=== PATIENT | female | born 1995 | race Caucasian/White ===

== ENCOUNTER → 2017-03-10 | Outpatient (CLI) | payer BC | END | disposition home or self-care (01) | LOC: C.PAPS 16:58 | PROVIDERS: ATTEND Physician Assistant | DX: Z01.411 Encounter for gynecological examination (general) (routine) with abnormal findings (principal); R87.610 Atypical squamous cells of undetermined significance on cytologic smear of cervix (ASC-US) ==

== ENCOUNTER → 2017-03-17 | Outpatient (CLI) | payer BC ==
[2017-03-25 19:52] LABS: CHLAMYDIA TRACH RNA*** NOT DETECTED (NOT DETECTED); GC (NEIS GONORRHOEAE)RNA** NOT DETECTED (NOT DETECTED)
== END | disposition home or self-care (01) ==
LOC: C.LABSPEC 10:38
PROVIDERS: ATTEND Physician Assistant
DX: N94.10 Unspecified dyspareunia (principal)

== ENCOUNTER → 2018-03-18 | Outpatient (CLI) | payer BC | END | disposition home or self-care (01) | LOC: C.LABSPEC 11:14 | PROVIDERS: ATTEND Physician Assistant | DX: Z01.419 Encounter for gynecological examination (general) (routine) without abnormal findings (principal) ==

== ENCOUNTER → 2018-03-18 | Outpatient (CLI) | payer BC | END | disposition home or self-care (01) | LOC: C.PAPS 11:53 | PROVIDERS: ATTEND Physician Assistant | DX: Z01.419 Encounter for gynecological examination (general) (routine) without abnormal findings (principal) ==

== ENCOUNTER 2021-10-29 07:36 | Inpatient (IN) ==
[2021-10-29] MEDS ORDERED: OXYTOCIN 30 UNITS/500 ML BAG IV PRN ×4 (08:01→19:14)
[2021-10-29 08:20] LABS: Hematocrit (blood only) 33.1 % (37-47); Hemoglobin 11.2 g/dL (12.0-16.0); Mean Corpuscular Hemoglobin 31.2 pg (25-34); Mean Corpuscular Hgb Conc 33.8 g/dL (32-36); Mean Corpuscular Volume 92.2 fL (80-100); Platelet Count 252 K/uL (130-400); RDW Coefficient of Variation 14.2 % (11.5-14.5); RDW Standard Deviation 47.6 fL (36.4-46.3); Red Blood Count 3.59 M/uL (4.2-5.4); White Blood Count 15.21 K/uL (4.8-10.8)
--- NOTE | 2021-10-29 08:23 | History & Physical Report ---
Date of Service October 29, 2021 Assessment & Plan (1) Gestational diabetes mellitus (GDM) affecting , antepartum: (2) Encounter for induction of labor: Plan: plan pitocin induction. epidural then arom. fetus category one. check bs q 1hr and goal of 70-120. Anticipate . Admission and Anticipated Discharge Date Admission Date: October 29, 2021 History of Present Illness Chief Complaint: induction of labor Primary Care Provider: Joya Clinton DO Patient is a 26yowf with iup at 41 4/7 weeks who presents for postdates induction. Had coombs placed last night and still in. Notes some contractions. no vb/lof. +fm. labs: Blood Type A Positive 03/11/21 Antibody Screen NEGATIVE 03/11/21 Hemoglobin 10.5 g/dL (12.0-16.0) L 08/01/21 Hematocrit 32.2 % (37-47) L 08/01/21 Mean Corpuscular Volume 89.0 fL (80-100) 03/11/21 Platelet Count 253 K/uL (130-400) 03/11/21 Varicella-Zoster IgG Antibody 3842.00 INDEX 02/25/19 Rubella IgG Antibody Immune (Immune) 03/11/21 Rapid Plasma Reagin Nonreactive (Nonreactive) 03/11/21 Hepatitis B Surface Antigen Neg (Neg) 03/11/21 HIV (1&2) Ab and P24 Ag, 4th Gener Neg (Neg) 03/11/21 Glucose 1 Hour 50 gm Load 138 mg/dl (70-130) H 08/01/21 OB Optional Labs: Chlamydia trachomatis RNA NOT DETECTED (NOT DETECTED) 03/11/21 Neisseria gonorrhoeae RNA NOT DETECTED (NOT DETECTED) 03/11/21 Thyroid Stimulating Hormone (TSH) 1.580 uIu/ml (0.300-4.500) 10/03/21 Labs Reviewed: low risk cfdna, neg cf/sma declines AFP failed 28 week gtt-akh gbs neg Allergies Allergy/AdvReac Type Severity Reaction Status Date / Time benzoyl peroxide AdvReac Unknown Rash Verified 10/29/21 07:46 Home Medications Medication Instructions Recorded Confirmed Type [id number] 3-fat com #1 27 1 cap PO DAILY cap 09/24/20 10/29/21 History mg-1 mg-300 mg capsule levothyroxine 50 mcg tablet 50 mcg PO DAILY #30 tab 10/16/21 10/29/21 Rx Patient History Medical History Depression Hidradenitis suppurativa Obesity Prior miscarriage with , antepartum Subclinical hypothyroidism Surgical History H/O wisdom tooth extraction Family History Mother Diabetes Hypertension High cholesterol Grandfather (Maternal) Coronary heart disease Myocardial infarction Grandmother (Paternal) Hypothyroidism Father No problems noted. Denies family history of Colon cancer Pancreas cancer Ovarian cancer Prostate cancer Breast cancer Uterine cancer Social History Smoking Status: Current every day smoker Age Started Using Tobacco: 15; packs per day: 0.5; Cigarettes Per Day: 10; Second Hand Exposure: Yes; Do You Dip or Chew Tobacco: No; Tobacco Cessation Education Requested by Patient: No Hx Alcohol Use: No Hx Substance Use: No Preferred Language: Burundian Communication Ability: Effective Visual Impairment: No Limitations Hearing Ability: Normal Direct Service Professional Required: No Beliefs That Will Affect Care: None marital status: marital status details: Jt Lewis (27) [phone] Current Living Situation: Spouse Current Living Situation Comment: lives with spouse have 1 dog, 2 cats. current occupational status: employed current occupation: [employer] Patient Access Other Information That Helps Us Care for You: No Feels Safe at Home: Yes Safety Concerns: Feels Safe At This Time Childhood Exposure to Second-Hand Smoke: Yes caffeine: Yes (soda) during the past year weight has: remained stable Dental Care, Regularly: Yes Physical Activity Frequency: Does not Exercise Seatbelt Use: always Sunscreen Use: Yes Assistive Devices: None OB History g1--present SHANK CUTTER History noncontributory Physical Exam Constitutional: WD/WN, vitals as above Gastrointestinal (Abdomen): soft, gravid, nt efw--8-9 Psychiatric: A+Ox3, euthymic affect Genitourinary: gentle tug on the coombs and removed cx--4.5/75/-2 toco--q5 efm--130s with mod variability, accels to 150s, no decels Results & Data ([facility]) Vital Signs (Past 12 Hours) Vital Signs Temp Pulse Resp BP 10/29/21 07:45 36.6 C 111 H 20 121/80 Coding Level of Care Code None Diagnoses Gestational diabetes mellitus (GDM) affecting , antepartum O24.419 Encounter for induction of labor Z34.90
[2021-10-29] MEDS: LACTATED RINGER'S 1,000 ML IV PRN ×2 (09:45→13:58)
[2021-10-29] MEDS ORDERED: ePHEDrine sulfate 50 MG/ML AMP ONE (13:41)
[2021-10-29] MEDS ORDERED: SODIUM CHLORIDE 0.9% INJ 10 ML VIAL ONE (13:41)
[2021-10-29] MEDS ORDERED: BUPIVACAINE 0.25% 30 ML VIAL ONE (13:41)
[2021-10-29] MEDS ORDERED: fentaNYL citrate 100 MCG/2 ML VIAL ONE (13:42)
[2021-10-29] MEDS ORDERED: fentaNYL 2MCG/ML ROPIVACAINE 1.25MG/ML 100 ML BAG EPI ONE (13:42)
[2021-10-29] MEDS ORDERED: NALOXONE HCL 0.4 MG/1 ML VIAL/CARP IV PRN (13:52)
[2021-10-29] MEDS ORDERED: NALBUPHINE HCL INJ 10 MG/ML AMP IV PRN (13:52)
[2021-10-29] MEDS ORDERED: ePHEDrine sulfate 50 MG/ML AMP IV PRN (13:52)
[2021-10-29] MEDS ORDERED: NALOXONE HCL 1 MG in SODIUM CHLORIDE 0.9% 1000ML 1,000 ML IV PRN (13:52)
[2021-10-29] MEDS ORDERED: diphenhydrAMINE 50 MG/ML VIAL IV PRN (13:52)
[2021-10-29] MEDS ORDERED: fentaNYL 2MCG/ML ROPIVACAINE 1.25MG/ML 100 ML BAG EPI PRN (13:52)
--- NOTE | 2021-10-29 13:53 | Anesthesiology Consultation ---
Date of Service October 29, 2021 Assessment & Plan Chart Review Chart Review: Patient NOT seen in Pre Admission Testing and Acceptable Risk for Labor Epidural Consults Requested none History Height/Weight Height: 5 ft 3 in Weight: 93.44 kg Allergies Allergy/AdvReac Type Severity Reaction Status Date / Time benzoyl peroxide AdvReac Unknown Rash Verified 10/29/21 07:46 Medications Home Medications Medication Instructions Recorded Confirmed Last Taken [id number]-IH-omega 3-fat com #1 27 1 cap PO DAILY cap 09/24/20 10/29/21 10/28/21 21:00 mg-1 mg-300 mg capsule levothyroxine 50 mcg tablet 50 mcg PO DAILY #30 tab 10/16/21 10/29/21 10/29/21 05:30 Active Medications Generic Name Dose Route Start Last Admin Trade Name Freq PRN Reason Stop Dose Admin Lactated Ringer's 1,000 mls @ 125 mls/hr 10/29/21 08:01 10/29/21 13:34 Lr IV 10/31/21 08:00 999 mls/hr .Q8H PRN Infusion L&D Protocol Protocol Oxytocin 30 units in 500 mls @ 15 mls/hr 10/29/21 08:20 10/29/21 13:34 Pitocin IV 10/31/21 08:19 0.9 units/hr .Q24H PRN 15 mls/hr Labor Induction/Augmentation Titration Protocol 0.9 UNITS/HR Past Medical History Medical History Depression Hidradenitis suppurativa Obesity Prior miscarriage with , antepartum Subclinical hypothyroidism Past Family History Family History Mother Diabetes Hypertension High cholesterol Grandfather (Maternal) Coronary heart disease Myocardial infarction Grandmother (Paternal) Hypothyroidism Father No problems noted. Denies family history of Colon cancer Pancreas cancer Ovarian cancer Prostate cancer Breast cancer Uterine cancer Past Surgical History Surgical History H/O wisdom tooth extraction Social History Smoking Status: Current every day smoker tobacco type: cigarettes Smoking cigarettes per day: 10 Do You Dip or Chew Tobacco: No Hx Alcohol Use: No Hx Substance Use: No Physical Exam Vital Signs Last Vital Signs Temp 98.2 F 12/07/21 13:30 Pulse 89 10/29/21 13:51 Resp 20 10/29/21 13:30 BP 122/73 10/29/21 13:30 Pulse Ox 99 10/29/21 13:51 Testing Laboratory Results 10/29/21 08:09 Blood Type A Positive 10/29/21 08:09 Antibody Screen NEGATIVE 10/29/21 08:09 10/29/21 10/29/21 10/29/21 12:26 10:34 09:41 POC Glucose 75 91 88 10/29/21 08:26 POC Glucose 111 H
--- NOTE | 2021-10-29 15:13 | Labor Progress Brief Note ---
Date of Service October 29, 2021 Subjective comfortable with epidural Assessment & Plan (1) Gestational diabetes mellitus (GDM) affecting , antepartum: (2) Encounter for induction of labor: Plan: continue current management. fetus category one. anticipate . Admission and Anticipated Discharge Date Admission Date: October 29, 2021 Physical Exam Physical Exam: cx--5/75/-2 arom--copious clear toco--q2-3, pit at 15 efm--130s with mod variabiltiy, accels present, no decels Results & Data ([facility]) Vital Signs (Past 12 Hours) Vital Signs Temp Pulse Resp BP Pulse Ox 10/29/21 15:06 84 99 10/29/21 15:02 72 115/58 L 10/29/21 15:01 73 98 10/29/21 15:00 18 10/29/21 14:56 73 98 10/29/21 14:51 78 99 10/29/21 14:46 76 125/66 100 10/29/21 14:42 80 121/69 10/29/21 14:41 82 100 10/29/21 14:38 90 129/68 10/29/21 14:36 84 100 10/29/21 14:31 86 124/60 100 10/29/21 14:30 20 10/29/21 14:29 74 122/58 L 10/29/21 14:27 96 H 119/60 10/29/21 14:26 90 100 10/29/21 14:25 80 116/57 L 10/29/21 14:23 83 115/56 L 10/29/21 14:21 83 20 120/59 L 100 10/29/21 14:19 83 122/65 10/29/21 14:17 78 114/62 10/29/21 14:16 85 100 10/29/21 14:15 91 H 122/69 10/29/21 14:13 92 H 128/77 10/29/21 14:11 81 20 128/78 100 10/29/21 14:06 90 99 10/29/21 14:01 87 100 10/29/21 13:56 95 H 100 10/29/21 13:51 89 99 10/29/21 13:30 36.8 C 100 H 20 122/73 10/29/21 12:31 84 119/76 10/29/21 11:31 90 110/69 10/29/21 10:31 91 H 131/82 10/29/21 09:36 90 133/84 10/29/21 07:45 36.6 C 111 H 20 121/80 Coding Level of Care Code None Diagnoses Gestational diabetes mellitus (GDM) affecting , antepartum O24.419 Encounter for induction of labor Z34.90
--- NOTE | 2021-10-29 18:12 | Labor Progress Brief Note ---
Date of Service October 29, 2021 Subjective feeling some pressure with contractions Assessment & Plan (1) Encounter for induction of labor: (2) Gestational diabetes mellitus (GDM) affecting , antepartum: Plan: Will begin second stage. fetus reassuring. anticipate . Admission and Anticipated Discharge Date Admission Date: October 29, 2021 Physical Exam Physical Exam: cx--c/c/+1-2 toco--q2-3, oit at17 efm--120s wtih mod variability, accels present, no decels Results & Data ([facility]) Vital Signs (Past 12 Hours) Vital Signs Temp Pulse Resp BP Pulse Ox 10/29/21 18:08 98 H 94 10/29/21 18:06 97 H 98 10/29/21 18:03 77 111/77 10/29/21 18:01 92 H 100 10/29/21 18:00 36.7 C 20 10/29/21 17:56 78 99 10/29/21 17:52 94 H 89 L 10/29/21 17:51 75 99 10/29/21 17:49 72 126/72 10/29/21 17:46 85 96 10/29/21 17:44 93 H 89 L 10/29/21 17:41 76 100 10/29/21 17:36 73 99 10/29/21 17:33 73 112/70 10/29/21 17:31 75 100 10/29/21 17:30 20 10/29/21 17:26 87 98 10/29/21 17:21 78 100 10/29/21 17:17 82 109/66 10/29/21 17:16 84 100 10/29/21 17:11 89 98 10/29/21 17:06 81 99 10/29/21 17:02 75 119/77 10/29/21 17:01 93 H 100 10/29/21 17:00 20 10/29/21 16:56 73 100 10/29/21 16:51 75 99 10/29/21 16:49 81 107/63 10/29/21 16:46 69 98 10/29/21 16:41 71 98 10/29/21 16:36 75 99 10/29/21 16:33 71 103/61 10/29/21 16:31 72 99 10/29/21 16:30 20 10/29/21 16:26 76 99 10/29/21 16:21 78 99 10/29/21 16:18 75 109/67 10/29/21 16:16 75 99 10/29/21 16:11 76 99 10/29/21 16:06 79 99 10/29/21 16:02 88 128/82 10/29/21 16:01 103 H 98 10/29/21 16:00 36.8 C 20 10/29/21 15:56 97 H 99 10/29/21 15:55 97 H 92 10/29/21 15:51 79 98 10/29/21 15:47 80 113/74 10/29/21 15:46 87 98 10/29/21 15:41 80 99 10/29/21 15:36 100 H 99 10/29/21 15:34 95 H 105/64 10/29/21 15:31 91 H 100 10/29/21 15:30 20 10/29/21 15:26 80 98 10/29/21 15:21 78 98 10/29/21 15:17 93 H 106/54 L 10/29/21 15:16 87 99 10/29/21 15:11 84 99 10/29/21 15:06 84 99 10/29/21 15:02 72 115/58 L 10/29/21 15:01 73 98 10/29/21 15:00 18 10/29/21 14:56 73 98 10/29/21 14:51 78 99 10/29/21 14:46 76 125/66 100 10/29/21 14:42 80 121/69 10/29/21 14:41 82 100 10/29/21 14:38 90 129/68 10/29/21 14:36 84 100 10/29/21 14:31 86 124/60 100 10/29/21 14:30 20 10/29/21 14:29 74 122/58 L 10/29/21 14:27 96 H 119/60 10/29/21 14:26 90 100 10/29/21 14:25 80 116/57 L 10/29/21 14:23 83 115/56 L 10/29/21 14:21 83 20 120/59 L 100 10/29/21 14:19 83 122/65 10/29/21 14:17 78 114/62 10/29/21 14:16 85 100 10/29/21 14:15 91 H 122/69 10/29/21 14:13 92 H 128/77 10/29/21 14:11 81 20 128/78 100 10/29/21 14:06 90 99 10/29/21 14:01 87 100 10/29/21 13:56 95 H 100 10/29/21 13:51 89 99 10/29/21 13:30 36.8 C 100 H 20 122/73 10/29/21 12:31 84 119/76 10/29/21 11:31 90 110/69 10/29/21 10:31 91 H 131/82 10/29/21 09:36 90 133/84 10/29/21 07:45 36.6 C 111 H 20 121/80 Coding Level of Care Code None Diagnoses Encounter for induction of labor Z34.90 Gestational diabetes mellitus (GDM) affecting , antepartum O24.419
[2021-10-29] MEDS ORDERED: oxyCODONE/ACETAMINOPHEN 5mg/325mg TAB PO PRN (19:14)
[2021-10-29] MEDS ORDERED: SUPERCREAM 0.870% 15 GM JAR EXT PRN (19:14)
[2021-10-29] MEDS ORDERED: HYDROCORTISONE ACETATE 25 MG SUPP PR PRN (19:14)
[2021-10-29] MEDS ORDERED: ACETAMINOPHEN 325 MG TAB PO PRN (19:14)
[2021-10-29] MEDS ORDERED: DIPHTHERIA/TETANUS/PERTUSSIS 0.5 ML SYR/VIAL IM ONE (19:14)
--- NOTE | 2021-10-29 19:21 | Delivery Summary ---
Vaginal Delivery Summary Date of Service October 29, 2021 Vaginal Delivery Summary and 4th Degree LAC Pre-operative Diagnosis: at 41 4/7 weeks diet controlled gdm unfavorable cervix Post-operative Diagnosis: same Procedure: coombs bulb for cervical ripening pitocin induction epidural arom 4th degree laceration and repair EBL: 400cc Anesthesia: epidural Procedure: The patient presented to labor and delivery for postdates induction. Had coombs bulb and removed the morning of induction. Had pitocin induction, epidural and then arom for clear fluid. She progressed to c/c/+2. The patient pushed for 3 contractions to deliver a viable female infant in panchito position. The nose and mouth were bulb suctioned on the perineum and the rest of the was then delivered without difficulty. She gave a very forceful push to deliver the shoulders and they were delivered rapidly. The baby was vigorous. The nose and mouth were again bulb suctioned and the infant was placed in the maternal abdomen for drying and attention. Cord was clamped and cut at one minute of life. Cord blood and segment obtained. Placenta delivered spontaneous, intact with a three vessel cord. Cervix/sulci/rectum were intact. A fourth degree perineal laceration was repaired in the normal standard fashion--the rectal mucosa reapproximated with interrupted 4-0 vicryl, an overlying imbricating layer over that with 4-0 vicryl, sphincter reapproximated with 4, figure of 8 sutures of 3-0 vicryl, rest repaired in standard fashion. Rectum examined multiple times and not sutures palpated. Hemostasis obtained with dilute pitocin and fundal massage. Apgars were 8/8. Mother and baby doing well at the end of the delivery. Will give two doses of ancef to cover the repair. MNP Vaginal Delivery Charge Delivery Type Details: and 4th Degree LAC
--- NOTE | 2021-10-29 19:30 | Anesthesia Procedure Note ---
Date of Service October 29, 2021 Anesthesia Post Epidural Note Vital Signs Vital Signs: Temp Pulse Resp BP Pulse Ox 98.1 F 95 H 20 113/76 80 L 10/29/21 18:00 10/29/21 19:17 10/29/21 18:30 10/29/21 19:17 10/29/21 18:36 Pain Intensity Abdomen: Pain Intensity: 2 Notes Mental Status: alert / awake / arousable and participated in evaluation Nausea / Vomiting: adequately controlled Pain: adequately controlled Airway Patency, RR, SpO2: stable & adequate BP & HR: stable & adequate Hydration State: stable & adequate Neuraxial Anesthesia: was administered and sensory block is resolving Anesthetic Complications: no major complications apparent and Pt Satisfied with anesthetic care Epidural: Removed without complications and With tip intact
[2021-10-29] MEDS: ceFAZolin 1000MG 1,000 MG/7.5 ML SYR IV SCH (20:21)
[2021-10-29] MEDS: IBUPROFEN 600 MG TAB PO PRN (20:22)
[2021-10-29] MEDS: DOCUSATE SODIUM 100 MG CAP PO SCH (20:22)
[2021-10-29] MEDS: BENZOCAINE 20% AER SPR 82.5 GM CAN EXT PRN (20:23)
[2021-10-30] MEDS: IBUPROFEN 600 MG TAB PO PRN ×3 (03:31→15:57)
[2021-10-30] MEDS: ceFAZolin 1000MG 1,000 MG/7.5 ML SYR IV SCH (03:31)
[2021-10-30] MEDS: LEVOTHYROXINE SODIUM 50 MCG TABLET PO SCH (06:18)
--- NOTE | 2021-10-30 06:42 | Obstetrical Progress Note ---
Date of Service October 30, 2021 Assessment & Plan (1) Encounter for care and examination after delivery: Plan: 26yo PPD 1 s/p at 41 weeks 4 days complicated by 4th degree laceration -Continue routine care + bottom care for laceration -Vitals reviewed- HDS, afebrile -GBS neg -Encourage ambulation, regular diet -Pain control with ibuprofen, acetaminophen PRN -Encourage -Hgb 9.1 -discharge likely tomorrow -F/u in 6 weeks with OB after discharge Admission and Anticipated Discharge Date Admission Date: October 29, 2021 Supervising Physician Co-Signing Physician Notes Resident Physician Supervision Note: I interviewed and examined the patient. Discussed with Dr. Escoto and agree with findings and plan as documented in the note. Any exceptions or clarifications are listed here: Doing well. appropriate drop hgb, asx. Bottom feeling ok. Discussed care of 4th degree. Documented By: Jessica Cruz MD, FACOG Subjective Ambulation: yes w/o complaint Voiding: yes Passing Gas: yes BM: not yet Diet Tolerance: regular Lochia: small Feeding Type: bottle Current Pain Level(1-10): 0 Review of Systems Review of Systems: Denies fevers/chills. Denies dyspnea, cough. Denies chest pain. Denies breast pain or discharge. Denies dysuria. Denies headache. Denies back pain. Denies nausea, vomiting. Physical Exam Physical Exam: General: Alert, oriented, no acute distress Cardiac: Regular rate and rhythm, normal S1, S2. No murmurs appreciated. Respiratory: Clear to auscultation b/l with good air flow entry, symmetric chest rise and fall. No wheezes or crackles. No increased work of breathing or accessory muscle use Abdomen: Soft, nontender, nondistended. Fundus firm and palpable at umbilicus. No guarding or rebound. Extremities: Warm, dry. No lower extremity edema, erythema or swelling. Results & Data ([facility]) Vital Signs (Past 12 Hours) Vital Signs Temp Pulse Pulse Resp BP BP Pulse Ox 10/30/21 03:25 36.8 C 91 H 17 101/65 98 10/29/21 22:15 36.9 C 85 17 104/71 100 10/29/21 21:17 110 H 108/73 10/29/21 21:02 109 H 106/70 12/07/21 20:47 114 H 104/66 10/29/21 20:32 104 H 110/68 10/29/21 20:17 97 H 109/64 10/29/21 20:15 18 10/29/21 20:02 90 108/59 L 10/29/21 19:47 108 H 116/72 10/29/21 19:32 86 113/65 10/29/21 19:30 18 10/29/21 19:17 95 H 113/76 10/29/21 19:15 36.7 C 18 10/29/21 19:02 75 111/56 L 10/29/21 18:47 81 113/61 Resident Activity Tracking Resident Involvement: Resident Care Provided Care Provided: OB Delivery
[2021-10-30 06:45] LABS: Hematocrit (blood only) 27.4 % (37-47); Hemoglobin 9.1 g/dL (12.0-16.0)
[2021-10-30] MEDS: PRENATAL VITAMIN 1 TAB PO SCH (08:38)
[2021-10-30] MEDS: DOCUSATE SODIUM 100 MG CAP PO SCH ×2 (08:38→20:32)
[2021-10-31] MEDS: LEVOTHYROXINE SODIUM 50 MCG TABLET PO SCH (06:17)
--- NOTE | 2021-10-31 07:41 | Obstetrical Progress Note ---
Date of Service October 31, 2021 Assessment & Plan (1) Encounter for care and examination after delivery: Plan: 26yo PPD 2 s/p at 41 weeks 4 days complicated by 4th degree laceration -Continue routine care + bottom care for laceration -Vitals reviewed- afebrile -GBS neg -Encourage ambulation, regular diet -Pain control with ibuprofen, acetaminophen PRN -Encourage -Hgb 9.1 yesterday -discharge today -F/u in 6 weeks with OB after discharge Admission and Anticipated Discharge Date Admission Date: October 29, 2021 Supervising Physician Co-Signing Physician Notes Resident Physician Supervision Note: I interviewed and examined the patient. Discussed with Dr. Escoto and agree with findings and plan as documented in the note. Any exceptions or clarifications are listed here: [None] Documented By: Niki Vilchis MD, FACOG Subjective Ambulation: yes w/o complaint Voiding: yes Passing Gas: yes BM: not yet Diet Tolerance: regular Lochia: small Feeding Type: bottle Current Pain Level(1-10): 0 Review of Systems Review of Systems: Denies fevers/chills. Denies dyspnea, cough. Denies chest pain. Denies breast pain or discharge. Denies dysuria. Denies headache. Denies back pain. Denies nausea, vomiting. Physical Exam Physical Exam: General: Alert, oriented, no acute distress Cardiac: Regular rate and rhythm, normal S1, S2. No murmurs appreciated. Respiratory: Clear to auscultation, symmetric chest rise and fall. No wheezes or crackles. No increased work of breathing or accessory muscle use Abdomen: Soft, nontender, nondistended. Fundus firm and palpable 1 cm below umbilicus. No guarding or rebound. Extremities: Warm, dry. No lower extremity edema, erythema or swelling. Results & Data ([facility]) Vital Signs (Past 12 Hours) Vital Signs Temp Pulse Resp BP Pulse Ox 10/30/21 23:30 36.6 C 97 H 20 109/71 98 10/30/21 20:20 36.6 C 101 H 20 126/75 99 Resident Activity Tracking Resident Involvement: Resident Care Provided Care Provided: OB Delivery
[2021-10-31] MEDS: BENZOCAINE 20% AER SPR 82.5 GM CAN EXT PRN (08:27)
[2021-10-31] MEDS: DOCUSATE SODIUM 100 MG CAP PO SCH (08:27)
[2021-10-31] MEDS: PRENATAL VITAMIN 1 TAB PO SCH (08:27)
== END 2021-10-31 11:25 | disposition home or self-care (01) | DRG 768 ==
LOC: 4S1 07:36 → 4S2 21:30